=== PATIENT | female | born 1985 | race Caucasian/White ===

== ENCOUNTER → 2020-10-28 | Day surgery (SDC) | payer OTHER ==
[~2020-10-28] MED LIST: ALBUTEROL INHALER INH; DECADRON6 MG PO; IBUPROFEN200 MG PO; LAMICTAL TAB 1100 MG PO; LAMICTAL25 MG PO; MINIPRESS CAP 11 MG PO; TYLENOL325 MG PO; VENTOLIN HFA 66.7 GM INH; ZYRTEC10 MG PO
== END | disposition home or self-care (01) ==
LOC: OR 07:11
DX: J32.4 Chronic pansinusitis (principal); J33.9 Nasal polyp, unspecified; J34.3 Hypertrophy of nasal turbinates; J45.909 Unspecified asthma, uncomplicated; E66.01 Morbid (severe) obesity due to excess calories; F41.9 Anxiety disorder, unspecified; Z88.8 Allergy status to other drugs, medicaments and biological substances; Z79.899 Other long term (current) drug therapy
CPT/HCPCS: 84703; C1726; J0171; J0690; J1100; J1170; J2001; J2250; J2405; J2704; J2710; J3010; J7030; J7120